=== PATIENT | male | born 1955 | race Caucasian/White ===

== ENCOUNTER 2017-05-26 06:37 | Observation (INO) | payer OTHER ==
[2017-05-25 10:42] LABS: HEMOGLOBIN 16.4 g/dL (13.7-18.0); WHITE BLOOD COUNT 5.5 x10^3/uL (3.4-10)
[2017-05-25 10:50] LABS: BLOOD UREA NITROGEN 12 mg/dL (7-18)
[~2017-05-26] VITALS: Ht 177.8 cm; Wt 81.8 kg
[~2017-05-26 06:37] MED LIST: ASPI-496 PO; ATOR40TA78 PO; CHOL500045 PO; CINN500C2 PO; GING500C PO; GINK60TA4 PO; UBID1CAP43 PO; VITA200C7 PO
[2017-05-26] MEDS ORDERED: SODIUM CHLORIDE 0.9% 1,000 ML IV ONE (06:52)
[2017-05-26 07:01] VITALS: BP 136/88
[2017-05-26] MEDS ORDERED: FENTANYL PF 100 MCG/2ML ONE (07:54)
[2017-05-26] MEDS ORDERED: TICAGRELOR 90 MG TABLET ONE (07:54)
[2017-05-26] MEDS ORDERED: MIDAZOLAM 1 MG/ML, 5ML ONE (07:54)
[2017-05-26] MEDS ORDERED: VERAPAMIL 2.5 MG/ML, 2ML ONE (07:54)
[2017-05-26] MEDS ORDERED: BIVALIRUDIN 250 MG ONE (07:54)
[2017-05-26] MEDS ORDERED: HEPARIN 1,000 UNITS/ML, 10ML ONE (07:55)
[2017-05-26] MEDS ORDERED: LIDOCAINE 2%, 20ML ONE (07:55)
[2017-05-26] MEDS: SODIUM CHLORIDE 0.9% 1,000 ML IV SCH ×3 (09:15→19:25)
[2017-05-26] MEDS: LISINOPRIL 10 MG TABLET PO SCH (11:17)
[2017-05-26 13:45] VITALS: BP 138/82
[2017-05-26] MEDS ORDERED: OXYcodone/APAP 5/325MG TABLET PO ONE (14:00)
[2017-05-26] MEDS: METOPROLOL TARTRATE 25 MG TABLET PO SCH (18:00)
[2017-05-26] MEDS ORDERED: METOPROLOL TARTRATE 50 MG TABLET ONE ×2 (18:20→18:25)
[2017-05-26 20:36] VITALS: BP 118/71
[2017-05-26] MEDS: TICAGRELOR 90 MG TABLET PO SCH (20:43)
[2017-05-26] MEDS ORDERED: ATORVASTATIN 40 MG TABLET PO SCH (21:00)
[2017-05-27 01:41] VITALS: BP 127/74
[2017-05-27 05:35] LABS: HEMATOCRIT 45.1 % (39.2-51.8); HEMOGLOBIN 15.7 g/dL (13.7-18.0)
[2017-05-27 05:40] LABS: BLOOD UREA NITROGEN 18 mg/dL (7-18)
[2017-05-27 08:00] VITALS: BP 127/80
[2017-05-27] MEDS ORDERED: VITAMIN E 400 UNITS CAPSULE PO SCH (09:00)
[2017-05-27] MEDS ORDERED: ASPIRIN 81 MG TABLET EC PO SCH ×2 (09:00)
[2017-05-27] MEDS ORDERED: CHOLECALCIFEROL 1,000 UNIT TABLET PO SCH (09:00)
[2017-05-27] MEDS ORDERED: METO25TA35 PO (09:16)
[2017-05-27] MEDS ORDERED: LISI-167 PO (09:16)
[2017-05-27] MEDS ORDERED: TICA90TA PO (09:16)
[2017-05-27] MEDS: LISINOPRIL 10 MG TABLET PO SCH (10:41)
[2017-05-27] MEDS: TICAGRELOR 90 MG TABLET PO SCH (10:41)
[2017-05-27] MEDS: METOPROLOL TARTRATE 25 MG TABLET PO SCH (10:42)
== END 2017-05-27 14:58 | disposition home or self-care (01) ==
LOC: CACL 06:37 → ORIP 09:15 → 5SO 11:34
PROVIDERS: ADMIT Internal Medicine Cardiovascular Disease; ATTEND Internal Medicine Cardiovascular Disease
DX: I25.110 Atherosclerotic heart disease of native coronary artery with unstable angina pectoris (principal); I10 Essential (primary) hypertension; E78.00 Pure hypercholesterolemia, unspecified; E78.5 Hyperlipidemia, unspecified
CPT/HCPCS: 36415; 80048; 82040; 85014; 85018; 85025; 85610; 85730; 93458; 99156; 99157; C1725; C1769; C1874; C1887; C1894; C9600; G0378; J0583; J1644; J2250; J3010; J3490; Q9967

== ENCOUNTER → 2018-01-18 | Outpatient (CLI) | payer OTHER ==
[~2018-01-18] MED LIST changes: +LISI-167 PO; +METO25TA35 PO; +TICA90TA PO
== END | disposition home or self-care (01) ==
LOC: CVU 11:12
PROVIDERS: ATTEND Internal Medicine Cardiovascular Disease
DX: I65.23 Occlusion and stenosis of bilateral carotid arteries (principal); I25.10 Atherosclerotic heart disease of native coronary artery without angina pectoris; I10 Essential (primary) hypertension; E78.5 Hyperlipidemia, unspecified
CPT/HCPCS: 93880

== ENCOUNTER → 2020-07-09 | Outpatient (CLI) | payer OTHER | END | disposition home or self-care (01) | LOC: CFH 08:30 | PROVIDERS: ATTEND Internal Medicine Cardiovascular Disease | DX: I08.0 Rheumatic disorders of both mitral and aortic valves (principal); I10 Essential (primary) hypertension; E78.5 Hyperlipidemia, unspecified; I25.10 Atherosclerotic heart disease of native coronary artery without angina pectoris | CPT/HCPCS: 93306 ==